=== PATIENT | female | born 1970 | race Caucasian/White ===

== ENCOUNTER 2016-10-18 09:38 | Day surgery (SDC) | END 2016-10-18 09:39 | disposition home or self-care (01) | CPT/HCPCS: 45378; J3010; J7120 ==

== ENCOUNTER 2016-10-25 10:50 | Outpatient (CLI) | payer MEDICAID, OTHER | END 2016-10-25 10:51 | disposition home or self-care (01) | DX: Z12.31 Encounter for screening mammogram for malignant neoplasm of breast (principal) ==

== ENCOUNTER 2016-12-25 20:50 | Outpatient (CLI) | payer MEDICAID | END 2016-12-25 20:51 | disposition home or self-care (01) | DX: E03.9 Hypothyroidism, unspecified (principal) ==

== ENCOUNTER 2018-12-15 10:09 | Emergency (ER) | payer MEDICAID ==
--- NOTE | 2018-12-15 11:08 | XRAY Report ---
Reason: injury Procedure Date: 12/15/2018 Accession Number: [id number] / [id number] Procedure: XR - Knee 3 View LT CPT Code: FULL RESULT: EXAM: LEFT KNEE RADIOGRAPHY EXAM DATE: 12/15/2018 10:52 AM. CLINICAL HISTORY: Injury. COMPARISON: KNEE STANDING AP VIEW ONLY 09/04/2016 10:33 AM. TECHNIQUE: 3 views. FINDINGS: Bones: Normal. No fractures or bone lesions. Joints: There is a moderate to large joint effusion. Joint space narrowing of the bilateral weightbearing compartments, moderate to severe medially and mild to moderate laterally. This has progressed compared to 2016. Soft Tissues: Soft tissue swelling is noted around the knee. IMPRESSION: Degenerative changes which have progressed compared to 2016 and a moderate to large joint effusion. RADIA
--- NOTE | 2018-12-15 11:52 | ED Physician Documentation ---
PD HPI LOWER EXT INJURY - Stated complaint Stated Complaint: L KNEE PAIN - Chief complaint Chief Complaint: Ext Problem - History obtained from History obtained from: Patient - History of Present Illness PD HPI LOW EXT INJURY LOCATION: Left, Knee Type of injury: Twist (she was walking and turned with pop and pain in knee, subsequent swelling.) Timing - onset: How many days ago (2) Timing - duration: Days (2 days of increased pain. She says she has excruciating pains in both knees and other joints all the time from arthritis, but pain left knee much worse since the injury 2 days ago.) Timing - details: Abrupt onset, Still present Associated symptoms: Swelling (left knee). No: Weakness, Numbness Similar symptoms before: Diagnosis (knee arthritis with injections in the past.) Recently seen: Not recently seen (previously following with Ortho, Dr. Conn, but had not been back to Ortho clinic since about 2016) Review of Systems Constitutional: denies: Fever, Chills Nose: denies: Rhinorrhea / runny nose, Congestion Throat: denies: Sore throat Respiratory: denies: Cough GI: denies: Vomiting, Diarrhea Skin: denies: Abrasion (s), Laceration (s) Musculoskeletal: reports: Joint pain (diffuse and chronic) Neurologic: reports: Numbness (neuropathy chronically) PD PAST MEDICAL HISTORY - Past Medical History Cardiovascular: None Respiratory: None Endocrine/Autoimmune: None GI: GI bleed : None HEENT: None Psych: None Musculoskeletal: Osteoarthritis Derm: None - Past Surgical History Past Surgical History: Yes General:  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 - Present Medications Home Medications: Ambulatory Orders Medication Instructions Recorded Confirmed Levothyroxine [Synthroid] 100 mcg PO QDAC 10/18/16 10/18/16 Dexamethasone [Decadron] 4 mg PO DAILY #5 tablet 12/15/18 Naproxen 375 mg PO BID #20 tablet 12/15/18 oxyCODONE [Roxicodone] 5 mg PO Q6H PRN #25 tablet 12/15/18 - Allergies Allergies/Adverse Reactions: Allergies Allergy/AdvReac Type Severity Reaction Status Date / Time No Known Drug Allergies Allergy Verified 12/15/18 10:20 - Social History Does the pt smoke?: No Smoking Status: Former smoker Does the pt drink ETOH?: Yes Does the pt have substance abuse?: No PD ED PE NORMAL - Vitals Vital signs reviewed: Yes - General General: Alert and oriented X 3, Well developed/nourished - Derm Derm: Normal color, Warm and dry - Extremities Extremities: Other (left knee with moderate effusion and general tenderness. Limits exam. Has pain with palpation. No obvious pain with collateral nor cruciate testing though very limited. Torsional movement (Apley-like) of lower leg causes medial pain c/w likely meniscal injury though could be arthritic. ) - Neuro Neuro: No motor deficit, Other (decreased sensation generally in feet, chronic per patient. ) Results - Vitals Vitals: Vital Signs - 24 hr 12/15/18 12/15/18 10:16 12:38 Temperature 36.3 C L 36.3 C L Heart Rate 89 77 Respiratory 16 18 Rate Blood Pressure 169/90 H 177/95 H O2 Saturation 100 100 Oxygen O2 Source Room air - Labs Labs: Laboratory Tests 12/15/18 12/15/18 12/15/18 12:30 12:30 12:30 WBC 4.3 L RBC 4.02 L Hgb 13.4 Hct 39.3 MCV 97.9 MCH 33.3 H MCHC 34.1 RDW 12.7 Plt Count 156 MPV 7.8 L Neut # (Auto) 2.9 Lymph # (Auto) 0.9 L Cataño # (Auto) 0.3 Eos # (Auto) 0.1 Baso # (Auto) 0.1 Absolute Nucleated RBC 0.00 Nucleated RBC % 0.0 ESR Sodium 137 Potassium 4.0 Chloride 102 Carbon Dioxide 25 Anion Gap 10.0 BUN 16 Creatinine 0.6 Estimated GFR (MDRD) 106 Glucose 141 H Calcium 8.9 Total Bilirubin 1.2 H AST 66 H ALT 59 Alkaline Phosphatase 143 H Total Protein 8.5 H Albumin 4.4 Globulin 4.1 Albumin/Globulin Ratio 1.1 Lipase 26 Rheumatoid Factor NEGATIVE 12/15/18 12:30 WBC RBC Hgb Hct MCV MCH MCHC RDW Plt Count MPV Neut # (Auto) Lymph # (Auto) Cataño # (Auto) Eos # (Auto) Baso # (Auto) Absolute Nucleated RBC Nucleated RBC % ESR 21 H Sodium Potassium Chloride Carbon Dioxide Anion Gap BUN Creatinine Estimated GFR (MDRD) Glucose Calcium Total Bilirubin AST ALT Alkaline Phosphatase Total Protein Albumin Globulin Albumin/Globulin Ratio Lipase Rheumatoid Factor - Rads (name of study) left knee Radiology: Prelim report reviewed (arthritic changes, without fracture), EMP read contemporaneously PD MEDICAL DECISION MAKING - ED course Complexity details: considered differential (knee pain seems arthritic or more likely mensical. She is very anxious about it. She also complains of general body, joint, back pains and had been on pain meds regularly in [place] before moving here 3 years ago. Had been seeing Dr. Fabien Raza here, but had not been back to Ortho since he retired (last ortho in 2017 or so).), d/w patient Departure - Departure Disposition: 01 Home, Self Care Clinical Impression: Knee injury Qualifiers: Encounter type: initial encounter Laterality: left Qualified Code(s): S89.92XA - Unspecified injury of left lower leg, initial encounter Acute meniscal injury of knee Qualifiers: Encounter type: initial encounter Laterality: left Qualified Code(s): S83.8X2A - Sprain of other specified parts of left knee, initial encounter Condition: Stable Record reviewed to determine appropriate education?: Yes Instructions: ED Meniscal Injury Knee Poss Follow-Up: Tessa Olivas ARNP [Primary Care Provider] - [facility] [Provider Group] Prescriptions: Dexamethasone [Decadron] 4 mg PO DAILY #5 tablet Naproxen 375 mg PO BID #20 tablet oxyCODONE [Roxicodone] 5 mg PO Q6H PRN #25 tablet PRN Reason: Pain Comments: Use the knee brace when up and around. Crutches for partial weightbearing. I will give you a note for work for limited standing or walking. Use naproxen with food daily for the next week or so. You can add Decadron steroid anti- inflammatory as well. Add pain medicine as needed. Follow-up with Orthopedics in the next week or so, call today for an appointment. Follow-up with your primary care as well for blood test results and further evaluation of your general pains. Forms: Activity restrictions Discharge Date/Time: 12/15/18 13:15
[2018-12-15] MEDS ORDERED: NAPROXEN 250 MG TABLET PO STA (12:10)
[2018-12-15] MEDS ORDERED: oxyCODONE 5 MG TABLET PO STA (12:10)
[2018-12-15 12:39] VITALS: BP 177/95
[2018-12-15 12:42] LABS: BASOPHILS # (AUTO) 0.1 10^3/uL (0.0-0.1); BASOPHILS % (AUTO) 1.3 %; EOSINOPHILS # (AUTO) 0.1 10^3/uL (0.0-0.7); EOSINOPHILS % (AUTO) 2.3 %; HGB - HEMOGLOBIN 13.4 g/dL (12.0-16.0); LYMPHOCYTES # (AUTO) 0.9 10^3/uL (1.5-3.5); LYMPHOCYTES % (AUTO) 21.4 %; MEAN CORPUSCULAR HEMOGLOBIN 33.3 pg (27.0-31.0); MEAN CORPUSCULAR HGB CONC 34.1 g/dL (32.0-36.0); MEAN CORPUSCULAR VOLUME 97.9 fL (81.0-99.0); MEAN PLATELET VOLUME 7.8 fL (7.9-10.8); MONOCYTES # (AUTO) 0.3 10^3/uL (0.0-1.0); MONOCYTES % (AUTO) 7.3 %; NEUTROPHILS # (AUTO) 2.9 10^3/uL (1.5-6.6); NEUTROPHILS % (AUTO) 67.7 %; PLT - PLATELET COUNT 156 10^3/uL (130-450); RED BLOOD COUNT 4.02 10^6/uL (4.20-5.40); RED CELL DISTRIBUTION WIDTH 12.7 % (12.0-15.0); WHITE BLOOD COUNT 4.3 x10^3/uL (4.8-10.8)
[2018-12-15 12:57] LABS: ALBUMIN 4.4 g/dL (3.2-5.5); ALBUMIN/GLOBULIN RATIO 1.1 (1.0-2.2); BILIRUBIN,TOTAL 1.2 mg/dL (0.2-1.0); CREATININE 0.6 mg/dL (0.4-1.0); TOTAL PROTEIN 8.5 g/dL (6.7-8.2)
[2018-12-15 13:09] LABS: CALCIUM 8.9 mg/dL (8.5-10.3)
[2018-12-15 13:24] LABS: RHEUMATOID FACTOR NEGATIVE (Negative)
[2018-12-17 14:11] LABS: ANA SCREEN NEGATIVE (NEGATIVE)
== END 2018-12-15 13:15 | disposition home or self-care (01) ==
LOC: ED 10:09
DX: S89.92XA Unspecified injury of left lower leg, initial encounter (principal); S83.8X2A Sprain of other specified parts of left knee, initial encounter; X50.1XXA Overexertion from prolonged static or awkward postures, initial encounter; Y93.01 Activity, walking, marching and hiking; Z87.891 Personal history of nicotine dependence
CPT/HCPCS: 36415; 73562; 80053; 83690; 85025; 85651; 86038; 86430; 99283; 99284; A9270

== ENCOUNTER 2019-01-26 08:00 | Outpatient (CLI) | payer MEDICAID ==
[2019-01-26 12:54] LABS: BASOPHILS % (AUTO) 1.1 %; EOSINOPHILS # (AUTO) 0.1 10^3/uL (0.0-0.7); EOSINOPHILS % (AUTO) 3.2 %; HGB - HEMOGLOBIN 13.5 g/dL (12.0-16.0); LYMPHOCYTES # (AUTO) 1.4 10^3/uL (1.5-3.5); LYMPHOCYTES % (AUTO) 34.7 %; MEAN CORPUSCULAR HEMOGLOBIN 32.7 pg (27.0-31.0); MEAN CORPUSCULAR HGB CONC 33.5 g/dL (32.0-36.0); MEAN CORPUSCULAR VOLUME 97.7 fL (81.0-99.0); MEAN PLATELET VOLUME 8.2 fL (7.9-10.8); MONOCYTES # (AUTO) 0.3 10^3/uL (0.0-1.0); NEUTROPHILS # (AUTO) 2.1 10^3/uL (1.5-6.6); PLT - PLATELET COUNT 227 10^3/uL (130-450); RED BLOOD COUNT 4.11 10^6/uL (4.20-5.40); RED CELL DISTRIBUTION WIDTH 13.2 % (12.0-15.0)
[2019-01-26 13:14] LABS: ALBUMIN/GLOBULIN RATIO 1.1 (1.0-2.2); ALKALINE PHOSPHATASE 114 IU/L (42-121); ALT ALANINE AMINOTRANSFERASE 47 IU/L (10-60); AST ASPARTATE AMINOTRANSFERASE 46 IU/L (10-42); BILIRUBIN,TOTAL 0.6 mg/dL (0.2-1.0); BUN - BLOOD UREA NITROGEN 14 mg/dL (6-20); CALCIUM 8.9 mg/dL (8.5-10.3); CARBON DIOXIDE - CO2 24 mmol/L (21-32); CHLORIDE 103 mmol/L (101-111); CHOLESTEROL 190 mg/dL; CREATININE 0.6 mg/dL (0.4-1.0); GFR - MDRD 106 (>89); GLUCOSE 122 mg/dL (70-100); HDL CHOLESTEROL 64 mg/dL; LDL CHOLESTEROL,CALCULATED 62 mg/dL; SODIUM 138 mmol/L (135-145); TOTAL PROTEIN 7.5 g/dL (6.7-8.2); VLDL CHOLESTEROL 64 mg/dL
== END 2019-01-26 23:59 | disposition home or self-care (01) ==
LOC: LAB.N 08:00
PROVIDERS: ATTEND Nurse Practitioner Gerontology
DX: R73.9 Hyperglycemia, unspecified (principal); E03.9 Hypothyroidism, unspecified; R03.0 Elevated blood-pressure reading, without diagnosis of hypertension
CPT/HCPCS: 36415; 80053; 80061; 83721; 84443; 85025

== ENCOUNTER 2019-01-29 11:33 | Outpatient (CLI) | payer MEDICAID ==
[2019-01-29 18:49] LABS: HB2 TOTAL 14.3 g/dL; HEMOGLOBIN A1C 0.7 g/dL; HEMOGLOBIN A1C % 6.6 % (4.6-6.2)
== END 2019-01-29 23:59 | disposition home or self-care (01) ==
LOC: LAB.N 11:33
PROVIDERS: ATTEND Nurse Practitioner Gerontology
DX: R73.9 Hyperglycemia, unspecified (principal)
CPT/HCPCS: 36415; 83036

== ENCOUNTER 2020-01-04 16:46 | Outpatient (CLI) | payer MEDICAID | END 2020-01-04 16:47 | disposition home or self-care (01) | LOC: COV 16:46 | PROVIDERS: ATTEND Family Medicine | DX: R05 Cough (principal); R50.9 Fever, unspecified | CPT/HCPCS: 81599 ==

== ENCOUNTER 2020-09-12 16:38 | Outpatient (CLI) | payer MEDICAID ==
--- NOTE | 2020-09-12 16:41 | XRAY Report ---
PROCEDURE: Knee 4 View BILAT INDICATIONS: BILATERAL PRIMARY OSTEOARTHRITIS OF KNEE TECHNIQUE: 4 views of the bilateral knee(s) were acquired. COMPARISON: Left knee 01/20/2019, 07/25/2016 there is severe bilateral medial compartment narrowing an d subchondral sclerosis, markedly progressive compared to 2016 as well as progressive on the left com pared to 2019. No areas of erosion are identified. Periarticular osteophytes are present. There is mo derate lateral compartment narrowing on the left also progressive compared to prior exam. Bilateral m oderate patellofemoral compartment narrowing is present. FINDINGS: Bones: No fractures or dislocations. No suspicious bony lesions. Soft tissues: Mild bilateral joint effusion. No suspicious soft tissue calcifications. IMPRESSION: Bilateral severe medial as well as moderate lateral left and bilateral patellofemoral co mpartment narrowing most suggestive osteoarthritis. It is become progressive as above. Reviewed by: Kat Grier MD on 09/12/2020 4:39 PM PST Approved by: Kat Grier MD on 09/12/2020 4:39 PM PST Station ID: [id number]
== END 2020-09-12 23:59 | disposition home or self-care (01) ==
LOC: DI.N 16:38
PROVIDERS: ATTEND Orthopaedic Surgery
DX: M17.0 Bilateral primary osteoarthritis of knee (principal)

== ENCOUNTER 2021-03-15 14:22 | Outpatient (CLI) | payer MEDICAID ==
[2021-03-15 17:48] LABS: BASOPHILS # (AUTO) 0.1 10^3/uL (0.0-0.1); BASOPHILS % (AUTO) 1.6 %; EOSINOPHILS # (AUTO) 0.2 10^3/uL (0.0-0.7); EOSINOPHILS % (AUTO) 2.5 %; HCT - HEMATOCRIT 35.1 % (37.0-47.0); HGB - HEMOGLOBIN 11.6 g/dL (12.0-16.0); LYMPHOCYTES # (AUTO) 1.1 10^3/uL (1.5-3.5); LYMPHOCYTES % (AUTO) 16.8 %; MEAN CORPUSCULAR HEMOGLOBIN 34.5 pg (27.0-31.0); MEAN CORPUSCULAR VOLUME 104.5 fL (81.0-99.0); MEAN PLATELET VOLUME 10.7 fL (7.9-10.8); MONOCYTES # (AUTO) 0.7 10^3/uL (0.0-1.0); MONOCYTES % (AUTO) 10.1 %; NEUTROPHILS # (AUTO) 4.4 10^3/uL (1.5-6.6); NEUTROPHILS % (AUTO) 68.4 %; PLT - PLATELET COUNT 200 10^3/uL (130-450); RED BLOOD COUNT 3.36 10^6/uL (4.20-5.40); WHITE BLOOD COUNT 6.4 x10^3/uL (4.8-10.8)
[2021-03-15 18:16] LABS: ALBUMIN/GLOBULIN RATIO 0.9 (1.0-2.2); ALKALINE PHOSPHATASE 185 IU/L (42-121); ALT ALANINE AMINOTRANSFERASE 80 IU/L (10-60); AST ASPARTATE AMINOTRANSFERASE 93 IU/L (10-42); BILIRUBIN,TOTAL 1.1 mg/dL (0.2-1.0); BUN - BLOOD UREA NITROGEN 31 mg/dL (6-20); CALCIUM 10.1 mg/dL (8.5-10.3); CARBON DIOXIDE - CO2 21 mmol/L (21-32); CHLORIDE 99 mmol/L (101-111); CHOL/HDL RATIO 3.9 (<4.4); CHOLESTEROL 197 mg/dL; CREATININE 2.3 mg/dL (0.4-1.0); GFR - MDRD 22 (>89); GLUCOSE 240 mg/dL (70-100); HDL CHOLESTEROL 50 mg/dL; LDL CHOLESTEROL,CALCULATED 114 mg/dL; LDL/HDL RATIO 2.3 (<4.4); POTASSIUM 4.8 mmol/L (3.5-5.0); SODIUM 134 mmol/L (135-145); TOTAL PROTEIN 8.7 g/dL (6.7-8.2); TRIGLYCERIDES 167 mg/dL; VLDL CHOLESTEROL 33 mg/dL
[2021-03-15 18:19] LABS: THYROID STIMULATING HORMONE 4.31 uIU/mL (0.34-5.60)
[2021-03-15 19:27] LABS: CREATININE,URINE 420.5 mg/dL; MICROALBUM/CREATININE RATIO,UR 14.7 ug/mg (<30.0); MICROALBUMIN,URINE 6.2 mg/dL (0-300.0)
[2021-03-15 20:20] LABS: ESTIMATED AVERAGE GLUCOSE 217 mg/dL (70-100); HEMOGLOBIN A1c% 9.2 % (4.27-6.07)
== END 2021-03-15 23:59 | disposition home or self-care (01) ==
LOC: LAB.WCP 14:22
PROVIDERS: ATTEND Family Medicine
DX: E11.9 Type 2 diabetes mellitus without complications (principal)
CPT/HCPCS: 36415; 80053; 80061; 82043; 82570; 83036; 83721; 84443; 85025

== ENCOUNTER 2021-04-15 14:31 | Outpatient (CLI) | payer MEDICAID ==
--- NOTE | 2021-04-15 15:51 | Ultrasound Report ---
PROCEDURE: Retroperitoneal INDICATIONS: ACUTE KIDNEY FAILURE TECHNIQUE: Real-time scanning was performed of the kidneys and bladder, with image documentation. COMPARISON: None FINDINGS: Kidneys: Kidneys are normal in size. Right kidney measures 10.8 cm long; left kidney measures 11.0 cm long. Right renal cortical thickness is 1.4 cm; left renal cortical thickness is 1.7 cm. Renal c ortical echotexture is normal. No hydronephrosis or nephrolithiasis. No suspicious solid mass lesio ns. Bladder: Decompressed at the time of the study. Miscellaneous: No free pelvic fluid. IMPRESSION: Normal sized kidneys bilaterally with no evidence of hydronephrosis. Reviewed by: Marlon Dalton MD on 04/15/2021 2:49 PM EMANI Approved by: Marlon Dalton MD on 04/15/2021 2:49 PM EMANI Station ID: [id number]
== END 2021-04-15 14:32 | disposition home or self-care (01) ==
LOC: DI 14:31
PROVIDERS: ATTEND Family Medicine
DX: N17.9 Acute kidney failure, unspecified (principal)

== ENCOUNTER 2021-04-19 08:00 | Outpatient (CLI) | payer MEDICAID ==
[2021-04-19 18:14] LABS: CALCIUM 9.3 mg/dL (8.5-10.3); CREATININE 0.9 mg/dL (0.4-1.0); POTASSIUM 4.2 mmol/L (3.5-5.0)
[2021-04-19 18:17] LABS: CREATININE,URINE 265.6 mg/dL; MICROALBUM/CREATININE RATIO,UR 11.7 ug/mg (<30.0); MICROALBUMIN,URINE 3.1 mg/dL (0-300.0)
[2021-04-19 18:26] LABS: BASOPHILS # (AUTO) 0.1 10^3/uL (0.0-0.1); BASOPHILS % (AUTO) 1.5 %; EOSINOPHILS # (AUTO) 0.1 10^3/uL (0.0-0.7); EOSINOPHILS % (AUTO) 2.7 %; HCT - HEMATOCRIT 35.6 % (37.0-47.0); HGB - HEMOGLOBIN 11.6 g/dL (12.0-16.0); LYMPHOCYTES # (AUTO) 0.6 10^3/uL (1.5-3.5); LYMPHOCYTES % (AUTO) 18.8 %; MEAN CORPUSCULAR HEMOGLOBIN 35.5 pg (27.0-31.0); MEAN CORPUSCULAR HGB CONC 32.6 g/dL (32.0-36.0); MEAN CORPUSCULAR VOLUME 108.9 fL (81.0-99.0); MEAN PLATELET VOLUME 10.3 fL (7.9-10.8); MONOCYTES # (AUTO) 0.3 10^3/uL (0.0-1.0); MONOCYTES % (AUTO) 10.1 %; NEUTROPHILS # (AUTO) 2.2 10^3/uL (1.5-6.6); NEUTROPHILS % (AUTO) 66.6 %; PLT - PLATELET COUNT 143 10^3/uL (130-450); RED BLOOD COUNT 3.27 10^6/uL (4.20-5.40); RED CELL DISTRIBUTION WIDTH 13.4 % (12.0-15.0); WHITE BLOOD COUNT 3.4 x10^3/uL (4.8-10.8)
[2021-04-19 18:45] LABS: GLUCOSE, URINE (UA) 500 mg/dL (NEGATIVE); KETONES,URINE (UA) TRACE mg/dL (NEGATIVE); LEUKOCYTE ESTERASE, URINE NEGATIVE (NEGATIVE); NITRITE,URINE NEGATIVE (NEGATIVE); OCCULT BLOOD,URINE NEGATIVE (NEGATIVE); PH,URINE 6.5 PH (5.0-7.5); PROTEIN,URINE 30 mg/dL (NEGATIVE); UROBILINOGEN,URINE 1 (NORMAL) E.U./dL (NORMAL)
[2021-04-19 19:12] LABS: CLARITY,URINE CLOUDY (CLEAR)
[2021-04-19 19:13] LABS: BILIRUBIN,URINE NEGATIVE (NEGATIVE); ICTOTEST,URINE NEGATIVE
[2021-04-19 19:22] LABS: BACTERIA,URINE Rare /HPF (None Seen); RBC,URINE None Seen /HPF (0-5); SQUAMOUS EPITHELIAL CELL,UR FEW Squamous (<= Few); WBC,URINE 0-3 /HPF (0-5)
[2021-04-19 19:23] LABS: AMORPHOUS SEDIMENT,UR Marked /LPF
== END 2021-04-19 23:59 | disposition home or self-care (01) ==
LOC: LAB.WCP 08:00
PROVIDERS: ATTEND Family Medicine
DX: N17.9 Acute kidney failure, unspecified (principal); E11.9 Type 2 diabetes mellitus without complications
CPT/HCPCS: 36415; 80048; 81001; 82043; 82570; 85025

== ENCOUNTER 2021-06-29 08:00 | Outpatient (CLI) | payer MEDICAID ==
[2021-06-29 18:29] LABS: CREATININE,URINE 280.3 mg/dL; PROTEIN/CREATININE RATIO,URINE 0.2 (<=0.2)
[2021-06-29 18:31] LABS: CALCIUM 9.4 mg/dL (8.5-10.3); CREATININE 0.8 mg/dL (0.4-1.0); POTASSIUM 4.2 mmol/L (3.5-5.0)
[2021-06-29 18:55] LABS: BILIRUBIN,URINE NEGATIVE (NEGATIVE); GLUCOSE, URINE (UA) NEGATIVE (NEGATIVE); KETONES,URINE (UA) NEGATIVE (NEGATIVE); LEUKOCYTE ESTERASE, URINE NEGATIVE (NEGATIVE); NITRITE,URINE NEGATIVE (NEGATIVE); OCCULT BLOOD,URINE NEGATIVE (NEGATIVE); PROTEIN,URINE TRACE mg/dL (NEGATIVE); UROBILINOGEN,URINE 0.2 (NORMAL) E.U./dL (NORMAL)
[2021-06-29 18:58] LABS: CLARITY,URINE CLOUDY (CLEAR)
[2021-06-29 21:57] LABS: AMORPHOUS SEDIMENT,UR Marked /LPF; BACTERIA,URINE Moderate /HPF (None Seen); RBC,URINE None Seen /HPF (0-5); SQUAMOUS EPITHELIAL CELL,UR RARE Squamous (<= Few); WBC,URINE 0-3 /HPF (0-5)
== END 2021-06-29 23:59 | disposition home or self-care (01) ==
LOC: LAB.WCP 08:00
PROVIDERS: ATTEND Family Medicine
DX: N17.9 Acute kidney failure, unspecified (principal)
CPT/HCPCS: 36415; 80048; 81001; 82570; 84156; 86038; 86225

== ENCOUNTER 2021-08-07 14:31 | Outpatient (CLI) | payer MEDICAID ==
[2021-08-07 18:24] LABS: CALCIUM 9.3 mg/dL (8.5-10.3); CREATININE 0.7 mg/dL (0.4-1.0); POTASSIUM 3.9 mmol/L (3.5-5.0)
[2021-08-07 21:19] LABS: ESTIMATED AVERAGE GLUCOSE 157 mg/dL (70-100); HEMOGLOBIN A1c% 7.1 % (4.27-6.07)
== END 2021-08-07 23:59 | disposition home or self-care (01) ==
LOC: LAB.WCP 14:31
PROVIDERS: ATTEND Family Medicine
DX: I10 Essential (primary) hypertension (principal); E11.8 Type 2 diabetes mellitus with unspecified complications
CPT/HCPCS: 36415; 80048; 83036

== ENCOUNTER 2022-03-30 14:19 | Outpatient (CLI) | payer MEDICAID ==
[2022-03-30 17:33] LABS: ABSOLUTE RETICS # AUTO 0.127 10^6/uL (0.020-0.110); BASOPHILS # (AUTO) 0.1 10^3/uL (0.0-0.1); EOSINOPHILS # (AUTO) 0.1 10^3/uL (0.0-0.7); EOSINOPHILS % (AUTO) 1.9 %; HCT - HEMATOCRIT 38.3 % (37.0-47.0); LYMPHOCYTES # (AUTO) 0.7 10^3/uL (1.5-3.5); LYMPHOCYTES % (AUTO) 13.7 %; MEAN CORPUSCULAR HEMOGLOBIN 36.2 pg (27.0-31.0); MEAN CORPUSCULAR HGB CONC 33.9 g/dL (32.0-36.0); MEAN CORPUSCULAR VOLUME 106.7 fL (81.0-99.0); MEAN PLATELET VOLUME 10.2 fL (7.9-10.8); MONOCYTES # (AUTO) 0.5 10^3/uL (0.0-1.0); MONOCYTES % (AUTO) 9.1 %; NEUTROPHILS # (AUTO) 3.9 10^3/uL (1.5-6.6); NEUTROPHILS % (AUTO) 73.5 %; PLT - PLATELET COUNT 188 10^3/uL (130-450); RED BLOOD COUNT 3.59 10^6/uL (4.20-5.40); RED CELL DISTRIBUTION WIDTH 12.9 % (12.0-15.0); RETICULOCYTE COUNT % (AUTO) 3.55 % (0.5-2.3); WHITE BLOOD COUNT 5.3 x10^3/uL (4.8-10.8)
[2022-03-30 18:54] LABS: % IRON SATURATION 39 % (20-50); ALBUMIN 3.5 g/dL (3.2-5.5); ALBUMIN/GLOBULIN RATIO 0.9 (1.0-2.2); ALKALINE PHOSPHATASE 178 IU/L (42-121); ALT ALANINE AMINOTRANSFERASE 44 IU/L (10-60); AST ASPARTATE AMINOTRANSFERASE 68 IU/L (10-42); BILIRUBIN,TOTAL 1.3 mg/dL (0.2-1.0); BUN - BLOOD UREA NITROGEN 7 mg/dL (6-20); CALCIUM 8.9 mg/dL (8.5-10.3); CARBON DIOXIDE - CO2 27 mmol/L (21-32); CHLORIDE 96 mmol/L (101-111); CHOL/HDL RATIO 4.2 (<4.4); CHOLESTEROL 181 mg/dL; CREATININE 0.9 mg/dL (0.4-1.0); GAMMA GLUTAMYL TRANSPEPTIDASE 601 IU/L (8-38); GFR - MDRD 65 (>89); GLUCOSE 254 mg/dL (70-100); HDL CHOLESTEROL 43 mg/dL; IRON 135 ug/dL (28-170); LDL CHOLESTEROL,CALCULATED 103 mg/dL; LDL/HDL RATIO 2.4 (<4.4); POTASSIUM 3.6 mmol/L (3.5-5.0); SODIUM 138 mmol/L (135-145); TOTAL IRON BINDING CAPACITY 347 ug/dL (250-450); TOTAL PROTEIN 7.6 g/dL (6.7-8.2); TRANSFERRIN 248 mg/dL (192-382); TRIGLYCERIDES 174 mg/dL; VLDL CHOLESTEROL 35 mg/dL
[2022-03-30 19:21] LABS: THYROID STIMULATING HORMONE 6.21 uIU/mL (0.34-5.60)
[2022-03-30 19:29] LABS: FERRITIN 199.4 ng/mL (11.0-306.8)
[2022-03-30 19:32] LABS: FOLATE 7.8 ng/mL (5.90 - >24.8)
[2022-03-30 20:27] LABS: CREATININE,URINE 476.3 mg/dL; MICROALBUM/CREATININE RATIO,UR 9.2 ug/mg (<30.0); MICROALBUMIN,URINE 4.4 mg/dL (0-300.0)
[2022-03-30 20:48] LABS: FREE T4 (FREE THYROXINE) 0.77 ng/dL (0.58-1.64)
[2022-03-30 22:21] LABS: ESTIMATED AVERAGE GLUCOSE 212 mg/dL (70-100)
== END 2022-03-30 14:20 | disposition home or self-care (01) ==
LOC: LAB.N 14:19
PROVIDERS: ATTEND Nurse Practitioner
DX: E11.9 Type 2 diabetes mellitus without complications (principal); Z13.220 Encounter for screening for lipoid disorders; D64.9 Anemia, unspecified; Z72.89 Other problems related to lifestyle; E66.01 Morbid (severe) obesity due to excess calories; R53.83 Other fatigue
CPT/HCPCS: 36415; 80053; 80061; 82043; 82570; 82607; 82728; 82746; 82977; 83036; 83540; 83721; 84439; 84443; 84466; 85025; 85045

== ENCOUNTER 2022-10-24 10:29 | Emergency (ER) | payer MEDICAID ==
[2022-10-24 10:39] VITALS: BP 150/75
[2022-10-24] MEDS ORDERED: cephALEXin 250 MG CAPSULE PO STA (15:35)
[2022-10-24] MEDS ORDERED: SULFAMETH/TRIMETH DS 800/160 MG TABLET PO STA (15:35)
--- NOTE | 2022-10-24 15:39 | ED Physician Documentation ---
History of Present Illness - Stated complaint Stated Complaint: L LEG PX/SORES - Chief complaint Chief Complaint: Ext Problem - History obtained from History obtained from: Patient - Additonal information Additional information: Patient comes to the emergency department chief complaint of increased erythema surrounding a chronic pretibial stage II ulcer. She has a diabetic and is concerned about this. She denies chills and fevers. She has never seen wound care for her lesions. She also notes some tender, erythematous lesions along her left inner upper arm and left lateral breast. Review of Systems Constitutional: reports: Reviewed and negative Eyes: reports: Reviewed and negative Ears: reports: Reviewed and negative Nose: reports: Reviewed and negative Throat: reports: Reviewed and negative Cardiac: reports: Reviewed and negative Respiratory: reports: Reviewed and negative GI: reports: Reviewed and negative : reports: Reviewed and negative Skin: reports: Lesions Musculoskeletal: reports: Reviewed and negative Neurologic: reports: Reviewed and negative Psychiatric: reports: Reviewed and negative Endocrine: reports: Reviewed and negative Immunocompromised: reports: Reviewed and negative PD PAST MEDICAL HISTORY - Past Medical History Past Medical History: Yes Cardiovascular: None Respiratory: None Neuro: Peripheral neuropathy Endocrine/Autoimmune: Type 2 diabetes, HyPOthyroidism GI: GI bleed : None HEENT: None Psych: Depression Musculoskeletal: Osteoarthritis, Fibromyalgia, Chronic back pain Derm: None - Past Surgical History Past Surgical History: Yes General:  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 - Present Medications Home Medications: Ambulatory Orders Medication Instructions Recorded Confirmed Amlodipine Besylate [Norvasc] 10 mg PO DAILY 08/03/21 08/03/21 Glimepiride [Amaryl] 2 mg PO DAILY 08/03/21 08/03/21 Lisinopril [Zestril] 20 mg PO DAILY 08/03/21 08/03/21 HYDROcod/ACETAM 5/325 [[place] 5/325] 1 - 2 tablet PO Q6H PRN #14 tablet 10/24/22 Sulfamethox/Trimeth 800/160 1 each PO BID #14 tablet 10/24/22 [Bactrim Ds 800/160] cephALEXin [Keflex] 500 mg PO Q6H #28 cap 10/24/22 - Allergies Allergies/Adverse Reactions: Allergies Allergy/AdvReac Type Severity Reaction Status Date / Time No Known Drug Allergies Allergy Verified 12/15/18 10:20 - Social History Does the pt smoke?: No Smoking Status: Never smoker Does the pt drink ETOH?: Yes Does the pt have substance abuse?: No - Immunizations Immunizations are current?: Yes PD ED PE NORMAL - Vitals Vital signs reviewed: Yes - General General: Alert and oriented X 3, No acute distress, Well developed/nourished - HEENT HEENT: Atraumatic, PERRL - Neck Neck: Supple, no meningeal sign - Cardiac Cardiac: Strong equal pulses - Respiratory Respiratory: No respiratory distress - Derm Derm: Warm and dry, Other (Stage II ulcer which appears chronic and involves the left anterior tibial area. There is an approximately 5 cm border of erythema surrounding the ulcer. Area is tender. There is no induration or fluctuance. ) - Extremities Extremities: No deformity - Neuro Neuro: Alert and oriented X 3 - Psych Psych: Normal mood, Normal affect Results - Vitals Vitals: Vital Signs - 24 hr 10/24/22 10:34 Temperature 36.7 C Heart Rate 107 H Respiratory 16 Rate Blood Pressure 150/75 H O2 Saturation 98 Oxygen O2 Source Room air PD Medical Decision Making - ED course Complexity details: considered differential, d/w patient ED course: The patient did appear to have a cellulitis associated with her chronic pretibial ulcer. She has been started on Bactrim and Keflex for this. I have given her a short course of as needed analgesia, as well. We have discussed the need for follow-up with her primary care physician to discuss follow-up in wound care clinic. Departure - Departure Disposition: 01 Home, Self Care Clinical Impression: Cellulitis Qualifiers: Site of cellulitis: extremity Site of cellulitis of extremity: lower extremity Laterality: left Qualified Code(s): L03.116 - Cellulitis of left lower limb Ulcer of leg, chronic Qualifiers: Laterality: left Non-pressure ulcer stage: limited to breakdown of skin Qualified Code(s): L97.921 - Non-pressure chronic ulcer of unspecified part of left lower leg limited to breakdown of skin Condition: Stable Instructions: ED Infec Skin Cellulitis, ED Ulcer Venous Leg Prescriptions: Sulfamethox/Trimeth 800/160 [Bactrim Ds 800/160] 1 each PO BID #14 tablet cephALEXin [Keflex] 500 mg PO Q6H #28 cap HYDROcod/ACETAM 5/325 [[place] 5/325] 1 - 2 tablet PO Q6H PRN #14 tablet PRN Reason: Pain Comments: Prescriptions for antibiotics and pain medicines have been electronically transmitted to the [facility] [[email or web address]] pharmacy in [place]. Please make the next available appointment with your primary doctor to discuss following up with the wound care clinic for management of your ongoing ulcer. Discharge Date/Time: 10/24/22 15:58
== END 2022-10-24 15:58 | disposition home or self-care (01) ==
LOC: ED 10:29
DX: E11.622 Type 2 diabetes mellitus with other skin ulcer (principal); L97.821 Non-pressure chronic ulcer of other part of left lower leg limited to breakdown of skin; L03.116 Cellulitis of left lower limb
CPT/HCPCS: 99283; 99284; A9270

== ENCOUNTER 2023-02-05 09:40 | Outpatient (CLI) | payer MEDICAID ==
[2023-02-05 12:03] LABS: CREATININE,URINE 120.3 mg/dL; MICROALBUM/CREATININE RATIO,UR 2.5 ug/mg (<30.0); MICROALBUMIN,URINE 0.3 mg/dL (0-300.0)
[2023-02-05 12:23] LABS: ESTIMATED AVERAGE GLUCOSE 174 mg/dL (70-100); HEMOGLOBIN A1c% 7.7 % (4.27-6.07)
[2023-02-05 12:24] LABS: ALBUMIN 3.9 g/dL (3.2-5.5); ALBUMIN/GLOBULIN RATIO 0.8 (1.0-2.2); ALKALINE PHOSPHATASE 162 IU/L (42-121); ALT ALANINE AMINOTRANSFERASE 35 IU/L (10-60); AST ASPARTATE AMINOTRANSFERASE 44 IU/L (10-42); BILIRUBIN,TOTAL 1.2 mg/dL (0.2-1.0); BUN - BLOOD UREA NITROGEN 13 mg/dL (6-20); CALCIUM 9.4 mg/dL (8.5-10.3); CARBON DIOXIDE - CO2 25 mmol/L (21-32); CHLORIDE 105 mmol/L (101-111); CHOL/HDL RATIO 3.5 (<4.4); CHOLESTEROL 143 mg/dL; CREATININE 0.8 mg/dL (0.4-1.0); GFR - MDRD 75 (>89); GLUCOSE 232 mg/dL (70-100); HDL CHOLESTEROL 41 mg/dL; LDL CHOLESTEROL,CALCULATED 81 mg/dL; POTASSIUM 4.2 mmol/L (3.5-5.0); SODIUM 138 mmol/L (135-145); TOTAL PROTEIN 8.5 g/dL (6.7-8.2); TRIGLYCERIDES 103 mg/dL; VLDL CHOLESTEROL 21 mg/dL
[2023-02-05 12:28] LABS: THYROID STIMULATING HORMONE 4.08 uIU/mL (0.34-5.60)
[2023-02-05 12:30] LABS: FREE T4 (FREE THYROXINE) 0.9 ng/dL (0.58-1.64)
== END 2023-02-05 09:41 | disposition home or self-care (01) ==
LOC: LAB.N 09:40
PROVIDERS: ATTEND Nurse Practitioner
DX: E78.5 Hyperlipidemia, unspecified (principal); Z51.81 Encounter for therapeutic drug level monitoring; E11.9 Type 2 diabetes mellitus without complications; E03.9 Hypothyroidism, unspecified
CPT/HCPCS: 36415; 80053; 80061; 82043; 82570; 83036; 83721; 84439; 84443

== ENCOUNTER 2023-05-14 11:57 | Outpatient (CLI) | payer MEDICAID ==
[2023-05-14 20:56] LABS: ESTIMATED AVERAGE GLUCOSE 108 mg/dL (70-100); HEMOGLOBIN A1c% 5.4 % (4.27-6.07)
== END 2023-05-14 11:58 | disposition home or self-care (01) ==
LOC: LAB.N 11:57
PROVIDERS: ATTEND Nurse Practitioner
DX: E11.9 Type 2 diabetes mellitus without complications (principal)
CPT/HCPCS: 36415; 83036

== ENCOUNTER 2023-09-17 08:00 | Outpatient (CLI) | payer MEDICAID ==
--- NOTE | 2023-09-17 21:27 | XRAY Report ---
PROCEDURE: Knee 4 View BILAT INDICATIONS: BILAT KNE PAIN TECHNIQUE: 5 views of the knee(s) were acquired. COMPARISON: Bilateral knee radiograph on September 12, 2020. FINDINGS: Bones: No fractures or dislocations. Bilateral severe medial and moderate lateral and patellofemoral compartment joint space narrowing, subchondral sclerosis and juxta-articular osteophytosis. Findings are similar to prior dated September 12, 2020. No osseous erosion. No fracture or dislocation. Stable alignment. No suspicious bony lesions. Soft tissues: Small bilateral knee joint effusions. No suspicious soft tissue calcifications or motny s. IMPRESSION: 1.No acute bony abnormality. 2.Bilateral severe medial and moderate lateral and patellofemoral compartment osteoarthritis, similar to prior. Reviewed by: Alize Painting MD on 09/17/2023 9:26 PM PST Approved by: Alize Painting MD on 09/17/2023 9:26 PM PST Station ID: [id number]
== END 2023-09-17 23:59 | disposition home or self-care (01) ==
LOC: DI.WOS 08:00
PROVIDERS: ATTEND Orthopaedic Surgery
DX: M17.0 Bilateral primary osteoarthritis of knee (principal)

== ENCOUNTER 2023-11-09 17:39 | Outpatient (CLI) | payer MEDICAID | END 2023-11-09 17:40 | disposition EMS.NT | LOC: EMS 17:39 | DX: U07.1 COVID-19 (principal); W06.XXXA Fall from bed, initial encounter; Y92.013 Bedroom of single-family (private) house as the place of occurrence of the external cause ==

== ENCOUNTER 2023-11-10 07:05 | Outpatient (CLI) | payer MEDICAID | END 2023-11-10 23:59 | disposition short-term general hospital (02) | LOC: EMS 07:05 | DX: U07.1 COVID-19 (principal); R53.1 Weakness; R50.9 Fever, unspecified; R06.02 Shortness of breath; R51.9 Headache, unspecified | CPT/HCPCS: A0425; A0429; A0999 ==

== ENCOUNTER 2023-12-25 15:29 | Outpatient (CLI) | payer MEDICAID ==
[2023-12-25 15:48] LABS: CALCIUM 9.3 mg/dL (8.5-10.3); CREATININE 0.6 mg/dL (0.6-1.3); POTASSIUM 3.5 mmol/L (3.5-4.5)
== END 2023-12-25 15:30 | disposition home or self-care (01) ==
LOC: LAB 15:29 → LAB.R 15:30
PROVIDERS: ATTEND Registered Nurse
DX: L03.116 Cellulitis of left lower limb (principal); L97.822 Non-pressure chronic ulcer of other part of left lower leg with fat layer exposed
CPT/HCPCS: 80048

== ENCOUNTER 2024-01-12 08:00 | Outpatient (CLI) | payer MEDICAID | END 2024-01-12 23:59 | disposition home or self-care (01) | LOC: LAB.R 08:00 | PROVIDERS: ATTEND Registered Nurse | DX: T81.41XA Infection following a procedure, superficial incisional surgical site, initial encounter (principal) | CPT/HCPCS: 87070; 87205 ==

== ENCOUNTER 2024-01-13 15:52 | Outpatient (CLI) | payer MEDICAID | END 2024-01-13 23:59 | disposition critical access hospital (66) | LOC: EMS 15:52 | DX: M54.9 Dorsalgia, unspecified (principal); G89.29 Other chronic pain | CPT/HCPCS: A0425; A0429; A0999 ==

== ENCOUNTER 2024-01-13 15:56 | Emergency (ER) | payer MEDICAID ==
--- NOTE | 2024-01-13 16:19 | ED Physician Documentation ---
PD HPI BACK PAIN - Stated complaint Stated Complaint: BACK PX - Chief complaint Chief Complaint: Back Pain - History obtained from History obtained from: Patient - History of Present Illness Timing - details: Gradual onset Pain level max: 9 Pain level now: 9 Location: Lower Quality: Pain, Spasm, Similar to prior episodes Associated symptoms: No: Fever, Weakness, Numbness, Incontinent of urine, Unable to urinate, Hematuria, Incontinent of stool Improves with: Rest Worsened by: Movement Contributing factors: No: Lifting, Twisting, Trauma, Anticoagulated, Cancer, IVDA - Additional information Additional information: Patient is a 53-year-old female who presents to the emergency department complaining of acute on chronic low back pain. She is currently at [facility] recovering from a leg infection that she had a wound VAC on her left leg for and is getting PT. She states that her pain has been inadequately controlled for several weeks. She states today the pain has continued to worsen. She is on oxycodone every 4-6 hours as needed for pain. Patient states that she has been told she has arthritis in her back. 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 - Present Medications Home Medications: Ambulatory Orders Medication Instructions Recorded Confirmed Lisinopril [Zestril] 20 mg PO DAILY 08/03/21 01/13/24 Insulin Glargine [Lantus Solostar] 20 unit SUBQ DAILY 01/13/24 01/13/24 Meloxicam 1 tab PO DAILY 01/13/24 01/13/24 Metoprolol Tartrate [Lopressor] 1 tab PO DAILY 01/13/24 01/13/24 Pregabalin [Lyrica] 1 cap PO DAILY 01/13/24 01/13/24 Triamcinolone 0.1% Oint 1 applic TOP BID #80 gm 01/13/24 methocarbamoL [Robaxin] 500 mg PO Q6H PRN #20 tablet 01/13/24 oxyCODONE [Roxicodone] 5 - 10 mg PO Q6H PRN #20 tablet 01/13/24 MDD 6 - Allergies Allergies/Adverse Reactions: Allergies Allergy/AdvReac Type Severity Reaction Status Date / Time No Known Drug Allergies Allergy Verified 01/13/24 16:11 - Social History Does the pt smoke?: No Smoking Status: Never smoker Does the pt drink ETOH?: Yes Does the pt have substance abuse?: No - Immunizations Immunizations are current?: Yes PD ED PE NORMAL - Vitals Vital signs reviewed: Yes - General General: Alert and oriented X 3, No acute distress - HEENT HEENT: PERRL, Moist mucous membranes - Neck Neck: Supple, no meningeal sign - Cardiac Cardiac: RRR, Strong equal pulses - Respiratory Respiratory: No respiratory distress, Clear bilaterally - Abdomen Abdomen: Soft, Non tender, Non distended - Back Back: No spinal TTP, Other (no midline TTP, paraspinal spasm B low lumbar. ) - Derm Derm: Warm and dry, Other (excoriation pepper to the B thighs.) - Extremities Extremities: No edema, Other (dressing to the L lower leg. no signs of infection) - Neuro Neuro: Alert and oriented X 3, Other (Normal bilateral lower extremity patellar and ankle jerk reflexes. Normal great toe extension bilaterally. no saddle anesthesia) - Psych Psych: Normal mood, Normal affect Results - Vitals Vitals: Vital Signs - 24 hr 01/13/24 01/13/24 01/13/24 16:06 17:04 19:15 Temperature 37.4 C Heart Rate 97 83 88 Respiratory 20 18 Rate Blood Pressure 134/73 H 117/83 H 132/82 H O2 Saturation 99 100 Oxygen O2 Source Room air PD Medical Decision Making - ED course Complexity details: reviewed results, re-evaluated patient, considered differential, d/w patient ED course: 53-year-old female with acute on chronic back pain. No evidence of cauda equina, epidural abscess. No falls. No fracture. Feels much better after Dilaudid and Robaxin and Valium and Toradol. Able to sit up. She is able to ambulate about 25 feet she says with a cane. No focal neurological deficits. She does have some excoriation pepper to the bilateral thighs, states that she has been itching and she thinks she is allergic to the detergent at [facility]. She does not want to be placed on any oral steroids as she states she does not like the way prednisone makes her feel. We will place her on triamcinolone. We will change her pain medication and muscle relaxants. Will have her follow-up with her doctor for further care. Patient counseled regarding signs and symptoms for which I believe and urgent re-evaluation would be necessary. Patient with good understanding of and agreement to plan and is comfortable going home at this time This document was made in part using voice recognition software. While efforts are made to proofread this document, sound alike and grammatical errors may occur. Departure - Departure Disposition: 01 Home, Self Care Clinical Impression: Back pain Qualifiers: Back pain location: low back pain Chronicity: chronic Back pain laterality: bilateral Sciatica presence: without sciatica Qualified Code(s): M54.50 - Low back pain, unspecified Condition: Good Instructions: ED Low Back Pain Injury Follow-Up: eMre Mac ARNP [Primary Care Provider] - Within 1 week Prescriptions: methocarbamoL [Robaxin] 500 mg PO Q6H PRN #20 tablet PRN Reason: muscle spasm oxyCODONE [Roxicodone] 5 - 10 mg PO Q6H PRN #20 tablet MDD 6 PRN Reason: pain Triamcinolone 0.1% Oint 1 applic TOP BID #80 gm Comments: Your prescriptions were sent to [facility]. We will increase your oxycodone to 5 to 10 mg every 6 hours. We will change her Flexeril to Robaxin. We will add triamcinolone ointment for the rash and itching. If your pain is still inadequately controlled, your doctor may want to change you to a different pain medication such as OxyContin or oral hydromorphone. I am prescribing a short course of narcotic pain medication for you. These are potentially dangerous and addictive medications that should be used carefully. These medications may constipate you. Take an [id number] stool softener (docusate) twice daily with plenty of water while taking these medications. If you go 24 hours without a bowel movement, take [id number] miralax, per package instructions. Do not drink or drive while taking these medications. If you received narcotic or sedating medications while in the emergency department, do not drive for 24 hours. Store this medication in a safe, secure place and out of reach of children. It is a violation of federal law to give or sell this medication to another person or to use in a manner other than prescribed. The ED will not refill narcotic prescriptions, including prescriptions lost or stolen. To dispose of unwanted medications: 1. [facility] at [address] in [place] has a medication drop box. They accept prescription medications (in pill form) Saturday through Saturday 9:00 a.m. to 5:00 p.m. 2. The [facility] [employer] accepts prescription medications (in pill form only) for disposal year round. Call for more information. 3. Contact the [facility] for the next [facility] sponsored prescription drug collection event. , [phone], or [phone]; Discharge Date/Time: 01/13/24 19:15
[2024-01-13] MEDS: HYDROmorphone 1 MG/ML CARPUJECT IM STA ×2 (16:20→17:58)
[2024-01-13] MEDS: diazePAM INJ 5 MG/ML SYRINGE IM STA (16:58)
[2024-01-13] MEDS: methocarbamoL 500 MG TABLET PO STA (16:58)
[2024-01-13] MEDS: KETOROLAC 30 MG/ML VIAL IM STA (17:57)
[2024-01-13 19:20] VITALS: BP 132/82; O2SAT 100
== END 2024-01-13 19:15 | disposition home or self-care (01) ==
LOC: EDUNIT# → ED 15:56
DX: M54.50 Low back pain, unspecified (principal); E11.42 Type 2 diabetes mellitus with diabetic polyneuropathy; E03.9 Hypothyroidism, unspecified; M79.7 Fibromyalgia; Z79.4 Long term (current) use of insulin; Z79.899 Other long term (current) drug therapy
CPT/HCPCS: 96372; 99283; 99284; A9270; J1170

== ENCOUNTER 2024-02-10 07:24 | Outpatient (CLI) | payer MEDICAID | END 2024-02-10 23:59 | disposition critical access hospital (66) | LOC: EMS 07:24 | DX: R10.12 Left upper quadrant pain (principal); R10.812 Left upper quadrant abdominal tenderness | CPT/HCPCS: A0425; A0427; A0999 ==

== ENCOUNTER 2024-02-10 07:44 | Emergency (ER) | payer MEDICAID ==
--- NOTE | 2024-02-10 07:52 | ED Physician Documentation ---
PD HPI ABD PAIN - Stated complaint Stated Complaint: LUQ ABD PX - Additional information Additional information: 53-year-old female with diabetes history of diabetic leg infections and chronic pain syndrome presents in a very dramatic fashion with severe abdominal pain she states it started at 5:00 this morning she is unable to answer a lot of questions moaning and writhing around in the bed. She is not really able to give a lot of history as she is writhing and throwing herself around the bed. Unclear when her last bowel movement was. C-sections sounds like the only surgery. Denies any urinary symptoms. Really having a hard time interacting due to her distress. Describes left upper quadrant pain and nausea and vomiting. Surgical history section. Past medical history diabetes. Blood sugar prehospital was in the 140s. She was given 50 mcg of fentanyl x 2 en route via EMS. Review of Systems Constitutional: denies: Fever, Chills Cardiac: denies: Chest pain / pressure GI: reports: Abdominal Pain, Nausea, Vomiting : denies: Dysuria PD PAST MEDICAL HISTORY - Past Medical History Cardiovascular: None Respiratory: None Neuro: Peripheral neuropathy Endocrine/Autoimmune: Type 2 diabetes, HyPOthyroidism GI: GI bleed : None HEENT: None Psych: Depression Musculoskeletal: Osteoarthritis, Fibromyalgia, Chronic back pain Derm: None - Past Surgical History Past Surgical History: Yes General:  Ortho: Other /SOLE TIER: section - Present Medications Home Medications: Ambulatory Orders Medication Instructions Recorded Confirmed Lisinopril [Zestril] 20 mg PO DAILY 08/03/21 01/13/24 Insulin Glargine [Lantus Solostar] 20 unit SUBQ DAILY 01/13/24 01/13/24 Meloxicam 1 tab PO DAILY 01/13/24 02/10/24 Metoprolol Tartrate [Lopressor] 1 tab PO DAILY 01/13/24 01/13/24 Pregabalin [Lyrica] 1 cap PO DAILY 01/13/24 02/10/24 Triamcinolone 0.1% Oint 1 applic TOP BID #80 gm 01/13/24 methocarbamoL [Robaxin] 500 mg PO Q6H PRN #20 tablet 01/13/24 02/10/24 oxyCODONE [Roxicodone] 5 - 10 mg PO Q6H PRN #20 tablet 01/13/24 02/10/24 MDD 6 Furosemide [Lasix] 40 mg PO DAILY 02/10/24 02/10/24 Pantoprazole [Protonix] 40 mg PO DAILY 02/10/24 02/10/24 Promethazine [Phenergan] 25 mg PO Q6H PRN #10 tab 02/10/24 Sertraline HCl [Zoloft] 50 mg PO DAILY 02/10/24 02/10/24 amLODIPine [Norvasc] 10 mg PO DAILY 02/10/24 02/10/24 - Allergies Allergies/Adverse Reactions: Allergies Allergy/AdvReac Type Severity Reaction Status Date / Time No Known Drug Allergies Allergy Verified 02/10/24 07:51 - Social History Does the pt smoke?: No Smoking Status: Never smoker Does the pt drink ETOH?: Yes Does the pt have substance abuse?: No - Immunizations Immunizations are current?: Yes PD ED PE NORMAL - Vitals Vital signs reviewed: Yes - General General: Other (Moaning and writhing in in distress) - HEENT HEENT: Atraumatic - Neck Neck: Supple, no meningeal sign - Cardiac Cardiac: RRR, No murmur - Respiratory Respiratory: No respiratory distress, Clear bilaterally - Abdomen Abdomen: Other (Morbidly obese. Significant left upper quadrant tenderness. No other masses appreciated. Bowel sounds present) - Back Back: No CVA TTP - Neuro Neuro: Alert and oriented X 3 Results - Vitals Vitals: Vital Signs - 24 hr 02/10/24 02/10/24 02/10/24 07:48 09:21 10:40 Temperature 36.4 C L Heart Rate 72 69 78 Respiratory 20 18 16 Rate Blood Pressure 176/133 H 138/84 H 149/66 H O2 Saturation 100 99 100 02/10/24 12:00 Temperature Heart Rate 76 Respiratory 14 Rate Blood Pressure 146/78 H O2 Saturation 94 Oxygen O2 Source Room air - Labs Labs: Laboratory Tests 02/10/24 02/10/24 02/10/24 07:57 07:57 08:35 WBC 3.2 L RBC 3.83 L Hgb 9.9 L Hct 32.9 L MCV 85.9 MCH 25.8 L MCHC 30.1 L RDW 13.8 Plt Count 158 MPV 10.8 Neut # (Auto) 2.3 Lymph # (Auto) 0.5 L Curry # (Auto) 0.3 Eos # (Auto) 0.1 Baso # (Auto) 0.0 Absolute Nucleated RBC 0.00 Nucleated RBC % 0.0 Sodium 138 Potassium 3.3 L Chloride 104 Carbon Dioxide 22 Anion Gap 12.0 BUN 16 Creatinine 0.7 Estimated GFR (MDRD) 87 L Glucose 167 H Lactic Acid 2.4 H Calcium 9.4 Total Bilirubin 0.7 AST 24 ALT 20 Alkaline Phosphatase 158 H Total Protein 7.5 Albumin 3.9 Globulin 3.6 Albumin/Globulin Ratio 1.1 Lipase 15 Urine Color Urine Clarity Urine pH Ur Specific [place] Urine Protein Urine Glucose (UA) Urine Ketones Urine Occult Blood Urine Nitrite Urine Bilirubin Urine Urobilinogen Ur Leukocyte Esterase Ur Microscopic Review Urine Culture Comments 02/10/24 08:53 WBC RBC Hgb Hct MCV MCH MCHC RDW Plt Count MPV Neut # (Auto) Lymph # (Auto) Curry # (Auto) Eos # (Auto) Baso # (Auto) Absolute Nucleated RBC Nucleated RBC % Sodium Potassium Chloride Carbon Dioxide Anion Gap BUN Creatinine Estimated GFR (MDRD) Glucose Lactic Acid Calcium Total Bilirubin AST ALT Alkaline Phosphatase Total Protein Albumin Globulin Albumin/Globulin Ratio Lipase Urine Color YELLOW Urine Clarity CLEAR Urine pH 7.5 Ur Specific [place] 1.015 Urine Protein NEGATIVE Urine Glucose (UA) NEGATIVE Urine Ketones TRACE Urine Occult Blood NEGATIVE Urine Nitrite NEGATIVE Urine Bilirubin NEGATIVE Urine Urobilinogen 0.2 (NORMAL) Ur Leukocyte Esterase NEGATIVE Ur Microscopic Review NOT INDICATED Urine Culture Comments NOT INDICATED Note is made of a modest elevation in her lactic acid. However I note that she has no clinical source of infection to indicate this is due to sepsis. Her bowel richards look fine. She has no urinary tract infection or pneumonia. There is the question of the changes in her abdominal wall which are not visible externally and I do not think that she has cellulitis clinically. PD Medical Decision Making - ED course Complexity details: reviewed old records, reviewed results (Lipase normal mild hyperglycemia. She is anemic with a hemoglobin of 9.9 crit of 32.9, white blood cell count 3.2. 6 days ago she had labs that showed a white count of 2.9 hemoglobin 9.4 crit 30.9. This is not significantly changed.), considered differential (Pancreatitis bowel obstruction gastritis biliary colic) Reviewed Lab Results: Glucose 167. Alk phos elevated but otherwise LFTs normal lipase normal BUN and creatinine normal. She has relative leukopenia and mild anemia which appears chronic chronic or at least subacute in nature as they were present 6 days ago.. ED course: Patient presents very dramatically with complaints of left upper quadrant abdominal pain and repeated retching type behaviors. Writhing around in the bed and unable to participate meaningfully in her care initially. She was given analgesics and antiemetics and eventually is feeling well enough to have a CT scan which Shows: Lower chest: Mild basilar pulmonary atelectasis. There are periesophageal varices. Liver: Cirrhotic liver contour. On this single phase study, no suspicious h ypervascular lesion Gallbladder and biliary system: Unremarkable, nondilated biliary system Pancreas: No ductal dilation Spleen: Splenomegaly of 17 cm. Ill-defined area of hypoattenuation near the superior pole. Adrenals: No discrete nodule Kidneys: Mild cortical thinning bilaterally. No hydronephrosis Vessels and lymph nodes: The main portal vein appears patent. No abdominal aortic aneurysm. No pathologic lymph nodes by size criteria. Mild left upper quadrant varices. Bowel and peritoneum: No evidence of small bowel obstruction. No pathologic ascites. There are perirectal varices. The appendix appears nondilated. Mild nonspecific mesenteric root fat stranding is seen. Body wall: Moderate degree of subcutaneous fat stranding is seen in the left anterolateral body wall. No drainable fluid collection is identified Pelvis: Bladder is unremarkable. Reproductive organs appear unremarkable Bones: Possible erosive changes at the right L4-L5 facet. Mild to moderate degenerative changes. IMPRESSION: Cirrhosis and sequelae of portal hypertension. Splenomegaly of 17 cm, with a ill-defined area of hypoattenuation at the superior aspect, which may represent artifact/perfusional heterogeneity ariel cliff a small infarct. Recommend future HCC surveillance imaging. Mild mesenteric nonspecific fat stranding may be due to portal congestion or mesenteritis. Moderate degree of subcutaneous fat stranding in the left anterolateral body wall, possibly cellulitis. No abscess identified. Possible erosive changes at the right L4-L5 facet, age indeterminate. Correlate with any symptoms. MRI can further evaluate if there is sufficient concern. Other findings above. I note that she has no intra-abdominal catastrophe, no obstruction no appendicitis no perforated viscus nothing to explain her very dramatic pain presentation. There is some note made of some nonspecific fat stranding her left anterior lateral abdominal wall she has nothing externally to indicate that she has cellulitis of that area. Lab work is similarly unrevealing she has benign profile overall. Mild leukopenia and anemia which is ongoing as per comparison with last values. She is given IV fluid and multiple rounds of pain meds and antiemetics with eventual good control of her loud and dramatic retching episodes. She presents not unlike cannabis hyperemesis syndrome or other etiologies. She is an occasional cannabis consumer per her , though not regular. After control of her symptoms is better she was offered p.o. challenge which she declined to participate in and states that she would rather just go home. This seems like a reasonable plan as it seems we have excluded any acute infectious or surgical cause for her discomfort. Will give her some Phenergan to use at home. update 1400: she subsequently does agree to take some crackers here and successfully keeps those down Departure - Departure Disposition: 01 Home, Self Care Clinical Impression: Abdominal pain, Retching, Nausea Condition: Fair Instructions: Diet Clear Liquid Dc, ED Abdominal Pain Female Non-Specific Abdominal Pain, ED Nausea Vomiting Prescriptions: Promethazine [Phenergan] 25 mg PO Q6H PRN #10 tab PRN Reason: Nausea / Vomiting
[2024-02-10] MEDS: ONDANSETRON 4 MG/2 ML VIAL IVP STA ×2 (07:55→09:46)
[2024-02-10] MEDS: HYDROmorphone 1 MG/ML CARPUJECT IVP STA ×2 (07:55→08:48)
[2024-02-10] MEDS: SODIUM CHLORIDE 0.9% 1,000 ML IV STA ×2 (08:01→10:22)
[2024-02-10 08:06] LABS: BASOPHILS % (AUTO) 0.6 %; EOSINOPHILS # (AUTO) 0.1 10^3/uL (0.0-0.7); EOSINOPHILS % (AUTO) 2.5 %; HCT - HEMATOCRIT 32.9 % (37.0-47.0); HGB - HEMOGLOBIN 9.9 g/dL (12.0-16.0); LYMPHOCYTES # (AUTO) 0.5 10^3/uL (1.5-3.5); LYMPHOCYTES % (AUTO) 16.1 %; MEAN CORPUSCULAR HEMOGLOBIN 25.8 pg (27.0-31.0); MEAN CORPUSCULAR HGB CONC 30.1 g/dL (32.0-36.0); MEAN CORPUSCULAR VOLUME 85.9 fL (81.0-99.0); MEAN PLATELET VOLUME 10.8 fL (7.9-10.8); MONOCYTES # (AUTO) 0.3 10^3/uL (0.0-1.0); MONOCYTES % (AUTO) 8.2 %; NEUTROPHILS # (AUTO) 2.3 10^3/uL (1.5-6.6); NEUTROPHILS % (AUTO) 72.3 %; PLT - PLATELET COUNT 158 10^3/uL (130-450); RED BLOOD COUNT 3.83 10^6/uL (4.20-5.40); RED CELL DISTRIBUTION WIDTH 13.8 % (12.0-15.0); WHITE BLOOD COUNT 3.2 x10^3/uL (4.8-10.8)
[2024-02-10] MEDS ORDERED: iohexoL-300 100 ML VIAL ONE (08:09)
[2024-02-10] MEDS: DROPERIDOL 5 MG/2 ML VIAL IVP STA ×2 (08:13→11:06)
[2024-02-10 08:19] LABS: ALBUMIN 3.9 g/dL (3.2-5.5); ALBUMIN/GLOBULIN RATIO 1.1 (1.0-2.2); BILIRUBIN,TOTAL 0.7 mg/dL (0.2-1.0); CALCIUM 9.4 mg/dL (8.5-10.3); CREATININE 0.7 mg/dL (0.6-1.3); POTASSIUM 3.3 mmol/L (3.5-4.5); TOTAL PROTEIN 7.5 g/dL (6.4-8.9)
[2024-02-10] MEDS: iohexoL-300 100 ML VIAL IVP ONE (09:02)
[2024-02-10 09:07] LABS: BILIRUBIN,URINE NEGATIVE (NEGATIVE); GLUCOSE, URINE (UA) NEGATIVE (NEGATIVE); KETONES,URINE (UA) TRACE mg/dL (NEGATIVE); LEUKOCYTE ESTERASE, URINE NEGATIVE (NEGATIVE); NITRITE,URINE NEGATIVE (NEGATIVE); OCCULT BLOOD,URINE NEGATIVE (NEGATIVE); PH,URINE 7.5 PH (5.0-7.5); PROTEIN,URINE NEGATIVE (NEGATIVE); UROBILINOGEN,URINE 0.2 (NORMAL) E.U./dL (NORMAL)
[2024-02-10 09:11] LABS: CLARITY,URINE CLEAR (CLEAR)
--- NOTE | 2024-02-10 09:13 | CT Report ---
PROCEDURE: Abdomen/Pelvis W INDICATIONS: severe epigastric/luq pain CONTRAST: 100ml omni 300 TECHNIQUE: After the administration of intravenous contrast, a CT scan of the abdomen and pelvis was performed. Images were recorded and evaluated at appropriate window settings. Reformats: coronal and sagittal. F or radiation dose reduction, the following was used: automated exposure control, adjustment of mA and /or kV according to patient size. COMPARISON: None. FINDINGS: Image quality: Diagnostic Lower chest: Mild basilar pulmonary atelectasis. There are periesophageal varices. Liver: Cirrhotic liver contour. On this single phase study, no suspicious hypervascular lesion Gallbladder and biliary system: Unremarkable, nondilated biliary system Pancreas: No ductal dilation Spleen: Splenomegaly of 17 cm. Ill-defined area of hypoattenuation near the superior pole. Adrenals: No discrete nodule Kidneys: Mild cortical thinning bilaterally. No hydronephrosis Vessels and lymph nodes: The main portal vein appears patent. No abdominal aortic aneurysm. No pathol ogic lymph nodes by size criteria. Mild left upper quadrant varices. Bowel and peritoneum: No evidence of small bowel obstruction. No pathologic ascites. There are perire ctal varices. The appendix appears nondilated. Mild nonspecific mesenteric root fat stranding is seen. Body wall: Moderate degree of subcutaneous fat stranding is seen in the left anterolateral body wall. No drainable fluid collection is identified Pelvis: Bladder is unremarkable. Reproductive organs appear unremarkable Bones: Possible erosive changes at the right L4-L5 facet. Mild to moderate degenerative changes. IMPRESSION: Cirrhosis and sequelae of portal hypertension. Splenomegaly of 17 cm, with a ill-defined area of hypo attenuation at the superior aspect, which may represent artifact/perfusional heterogeneity versus a s mall infarct. Recommend future HCC surveillance imaging. Mild mesenteric nonspecific fat stranding may be due to portal congestion or mesenteritis. Moderate degree of subcutaneous fat stranding in the left anterolateral body wall, possibly celluliti s. No abscess identified. Possible erosive changes at the right L4-L5 facet, age indeterminate. Correlate with any symptoms. MR I can further evaluate if there is sufficient concern. Other findings above. Reviewed by: Bladimir Altamirano MD on 02/10/2024 9:12 AM PDT Approved by: Bladimir Altamirano MD on 02/10/2024 9:12 AM PDT Station ID: [id number]
[2024-02-10 12:23] VITALS: O2SAT 94
[2024-02-10 14:10] VITALS: BP 146/74
== END 2024-02-10 14:10 | disposition home or self-care (01) ==
LOC: EDUNIT# → ED 07:44
DX: E11.42 Type 2 diabetes mellitus with diabetic polyneuropathy (principal); E03.9 Hypothyroidism, unspecified; M79.7 Fibromyalgia; Z79.4 Long term (current) use of insulin; Z79.899 Other long term (current) drug therapy; E66.01 Morbid (severe) obesity due to excess calories; R10.12 Left upper quadrant pain; R11.2 Nausea with vomiting, unspecified
CPT/HCPCS: 36415; 74177; 80053; 81003; 83605; 83690; 85025; 93005; 96361; 96374; 96375; 96376; 99284; 99285; J1170; Q9967; 81001; 87086

== ENCOUNTER 2024-03-24 16:35 | Outpatient (CLI) | payer MEDICAID ==
[2024-03-24 21:27] LABS: BASOPHILS % (AUTO) 0.5 %; EOSINOPHILS # (AUTO) 0.1 10^3/uL (0.0-0.7); EOSINOPHILS % (AUTO) 2.1 %; HCT - HEMATOCRIT 34.8 % (37.0-47.0); HGB - HEMOGLOBIN 10.6 g/dL (12.0-16.0); LYMPHOCYTES # (AUTO) 0.8 10^3/uL (1.5-3.5); MEAN CORPUSCULAR HEMOGLOBIN 26.2 pg (27.0-31.0); MEAN CORPUSCULAR HGB CONC 30.5 g/dL (32.0-36.0); MEAN CORPUSCULAR VOLUME 85.9 fL (81.0-99.0); MEAN PLATELET VOLUME 10.7 fL (7.9-10.8); MONOCYTES # (AUTO) 0.3 10^3/uL (0.0-1.0); NEUTROPHILS # (AUTO) 2.6 10^3/uL (1.5-6.6); NEUTROPHILS % (AUTO) 68.6 %; PLT - PLATELET COUNT 144 10^3/uL (130-450); RED BLOOD COUNT 4.05 10^6/uL (4.20-5.40); RED CELL DISTRIBUTION WIDTH 18.4 % (12.0-15.0); WHITE BLOOD COUNT 3.9 x10^3/uL (4.8-10.8)
[2024-03-24 22:24] LABS: ALBUMIN 4.2 g/dL (3.2-5.5); ALBUMIN/GLOBULIN RATIO 1.1 (1.0-2.2); BILIRUBIN,TOTAL 0.7 mg/dL (0.2-1.0); CALCIUM 9.3 mg/dL (8.5-10.3); CREATININE 0.7 mg/dL (0.6-1.3); POTASSIUM 3.8 mmol/L (3.5-4.5)
== END 2024-03-24 16:36 | disposition home or self-care (01) ==
LOC: LAB.N 16:35
PROVIDERS: ATTEND Nurse Practitioner
DX: L03.90 Cellulitis, unspecified (principal)
CPT/HCPCS: 36415; 80053; 85025; 87040

== ENCOUNTER 2024-04-10 14:15 | Outpatient (CLI) | payer MEDICAID | END 2024-04-10 14:30 | disposition home or self-care (01) | LOC: LAB.N 14:15 | PROVIDERS: ATTEND Physician Assistant Medical | DX: L03.116 Cellulitis of left lower limb (principal) | CPT/HCPCS: 87070; 87181; 87205 ==

== ENCOUNTER 2024-04-12 11:43 | Outpatient (CLI) | payer MEDICAID ==
--- NOTE | 2024-04-12 14:50 | Ultrasound Report ---
PROCEDURE: Abdomen Limited INDICATIONS: SPLENOMEGALY TECHNIQUE: Real-time focused scanning was performed of the abdomen, with image documentation. COMPARISONS: CT 02/10/2024 FINDINGS: Spleen: Markedly enlarged, measuring 16.6 x 6.1 x 15.7 cm, volume of 829 mL. No mass identified. IMPRESSION: Splenomegaly, likely sequela of portal hypertension. No solid mass identified. Reviewed by: Nhan Neal MD on 04/12/2024 2:49 PM PDT Approved by: Nhan Neal MD on 04/12/2024 2:49 PM PDT Station ID: [id number]
== END 2024-04-12 11:44 | disposition home or self-care (01) ==
LOC: DI 11:43
PROVIDERS: ATTEND Nurse Practitioner
DX: R16.1 Splenomegaly, not elsewhere classified (principal)